=== PATIENT | female | born 2000 | race Caucasian/White ===

== ENCOUNTER 2020-09-17 18:29 | Emergency (ER) | payer BC ==
[~2020-09-17] VITALS: Ht 177.8 cm; Wt 68.2 kg
[2020-09-17 18:49] LABS: COLLECTION METHOD CLEAN CATCH
[2020-09-17 19:00] LABS: BUDDING YEAST Present /hpf; MUCOUS Present /lpf; PH 7 (5-8); URINE APPEARANCE Cloudy; URINE BACTERIA Rare /hpf; URINE BILIRUBIN Negative (NEGATIVE); URINE BLOOD Negative (NEGATIVE); URINE COLOR Yellow; URINE GLUCOSE Negative (NEGATIVE); URINE KETONE Negative (NEGATIVE); URINE LEUKOCYTE ESTERASE 1+ (NEGATIVE); URINE NITRATE Negative (NEGATIVE); URINE PROTEIN(semi-quant) 1+ (NEGATIVE); URINE UROBILINOGEN Negative (NEGATIVE)
[2020-09-17] MEDS ORDERED: CEFTIN 250250 MG/TAB PO (19:13)
[2020-09-17 19:25] VITALS: BP 127/79; PULSE 71; TEMP 97.8
== END 2020-09-17 19:30 | disposition home or self-care (01) ==
LOC: COL.ER 18:29
PROVIDERS: Nurse Practitioner
DX: N39.0 Urinary tract infection, site not specified (principal)